=== PATIENT | female | born 1980 | race Caucasian/White ===

== ENCOUNTER 2020-04-08 09:57 | Emergency (ER) | payer OTHER ==
[~2020-04-08] VITALS: Ht 175.3 cm; Wt 68.0 kg
[2020-04-08] MEDS ORDERED: RELPAX20 MG PO (17:16)
[2020-04-08] MEDS ORDERED: KETO10TA2 PO (17:16)
== END 2020-04-08 17:23 | disposition home or self-care (01) ==
LOC: ER 09:57
DX: G43.809 Other migraine, not intractable, without status migrainosus (principal); M54.2 Cervicalgia